=== PATIENT | male | born 1990 | race Caucasian/White ===

== ENCOUNTER 2022-09-11 19:54 | Emergency (ER) | payer SELFPAY ==
[~2022-09-11] VITALS: Ht 180.3 cm; Wt 88.5 kg
[2022-09-11 19:57] VITALS: BP 134/88; PULSE 122; RESP 17; TEMP 98.4; O2SAT 95
--- NOTE | 2022-09-11 19:57 | NUR ---
PT IN [facility] WITH [facility]
--- NOTE | 2022-09-11 20:12 | NUR ---
ER MD EXAMINING PHYSICIAN
--- NOTE | 2022-09-11 20:23 | NUR ---
PT TO BED 12 AMBULATORY
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
--- NOTE | 2022-09-11 20:33 | NUR ---
Iv access done on left AC with G. 20. Bloods taken for Labs. EKG done by emt.
[2022-09-11 20:36] LABS: HEMATOCRIT 44.4 % (36-52); HEMOGLOBIN 15.3 g/dL (12.0-18.0); MEAN CORPUSCULAR HEMOGLOBIN 29 pg (27-31); MEAN CORPUSCULAR HGB CONC 35 g/dL (33-37); PLATELET COUNT (AUTO) 262 K/uL (140-450); RED BLOOD CELL COUNT(AUTO) 5.29 MIL/uL (4.20-6.10); RED CELL DISTRIBUTION WIDTH 13.2 % (11.6-13.7); WHITE BLOOD COUNT (AUTO) 18.2 K/uL (4.8-10.8)
[2022-09-11 20:44] VITALS: BP 131/81; PULSE 114; RESP 16; O2SAT 96
[2022-09-11 20:52] LABS: ANION GAP 14.4 (8-16); CARBON DIOXIDE 26.4 mmol/L (21-32); POTASSIUM 3.8 mmol/L (3.5-5.1); TOTAL BILIRUBIN 0.6 mg/dL (0.0-1.0)
[2022-09-11 21:04] LABS: LYMPHOCYTES % (MANUAL) 11 % (20-46)
--- NOTE | 2022-09-11 21:25 | NUR ---
Pt went to CT assisted by technical services coordinator by wheelchair.
--- NOTE | 2022-09-11 21:40 | NUR ---
Went back from ct by wheelchair.
--- NOTE | 2022-09-11 21:50 | NUR ---
Urine sample given. Dip Stick done. ERMD informed for the result.
[2022-09-11] MEDS ORDERED: NACL 0.9% 1,000 ML IV ONE (22:10)
[2022-09-11] MEDS ORDERED: methocarbamoL 500 MG TAB PO STA (23:46)
[2022-09-11] MEDS ORDERED: LIDOCAINE 5% 1 EA PATCH TP STA (23:46)
[2022-09-11] MEDS ORDERED: IBUP-2213 PO (23:48)
[2022-09-11] MEDS ORDERED: LID5T TP (23:48)
[2022-09-11] MEDS ORDERED: KETOROLAC 15 MG/ML VIAL IVP ONE (23:50)
--- NOTE | 2022-09-12 00:30 | NUR ---
Patient discharged. Written and verbal after care instructions given and explained. Patient verbalized understanding. Police with steady gait. All questions addressed prior to discharge. Advised to follow up with [facility]D.
--- NOTE | 2022-09-12 00:31 | NUR ---
Pt dc in custody of [facility]. Pt reassessed for pain before dc and the pt verbalized decrease level of pain.
== END 2022-09-12 00:30 ==
LOC: MED 19:54
DX: S32.029A Unspecified fracture of second lumbar vertebra, initial encounter for closed fracture (principal); S80.12XA Contusion of left lower leg, initial encounter; S30.1XXA Contusion of abdominal wall, initial encounter; S00.93XA Contusion of unspecified part of head, initial encounter; M25.511 Pain in right shoulder; Z79.1 Long term (current) use of non-steroidal anti-inflammatories (NSAID); Z79.899 Other long term (current) drug therapy; V89.2XXA Person injured in unspecified motor-vehicle accident, traffic, initial encounter; Y93.89 Activity, other specified; Y92.410 Unspecified street and highway as the place of occurrence of the external cause; Y99.8 Other external cause status
CPT/HCPCS: 36415; 70450; 71260; 72125; 73030; 73590; 74177; 80053; 81002; 83690; 84484; 85025; 93005; 96361; 96374; 99285; J1885; J7030; Q9967